=== PATIENT | male | born 1955 | race Caucasian/White ===

== ENCOUNTER 2017-08-27 13:30 | Emergency (ER) | payer OTHER ==
[~2017-08-27] VITALS: Ht 175.3 cm; Wt 95.3 kg
[2017-08-27] MEDS: LORAZEPAM 0.5 MG TABLET PO ONE (13:49)
[2017-08-27] MEDS ORDERED: LORAZEPAM 0.5 MG TABLET ONE (14:04)
[2017-08-27 14:07] LABS: BASOPHILS # (AUTO) 0.2 K/uL (0.0-8.0); BASOPHILS % (AUTO) 1.5 % (0.0-2.0); EOSINOPHILS % (AUTO) 0.2 % (0.0-7.0); HEMATOCRIT 45.1 % (36.7-47.1); HEMOGLOBIN 15.8 g/dL (12.5-16.3); LYMPHOCYTES # (AUTO) 4.4 K/uL (20.0-40.0); MEAN CORPUSCULAR HEMOGLOBIN 31.4 uug (23.8-33.4); MEAN CORPUSCULAR HGB CONC 35 g/dL (32.5-36.3); MEAN CORPUSCULAR VOLUME 89.7 fL (73.0-96.2); MONOCYTES # (AUTO) 0.3 K/uL (2.0-10.0); MONOCYTES % (AUTO) 2.6 % (0.0-11.0); NEUTROPHILS # (AUTO) 5.7 K/uL (1.8-8.9); NEUTROPHILS % (AUTO) 53.7 % (38.5-71.5); PLATELET COUNT (AUTO) 288 K/uL (152-348); RED BLOOD CELL COUNT(AUTO) 5.04 MIL/uL (4.06-5.63); WHITE BLOOD COUNT (AUTO) 10.6 K/uL (3.6-10.2)
--- NOTE | 2017-08-27 14:13 | NUR ---
Pt states still being anxious, but awaiting for Ativan to start working.
[2017-08-27 14:16] LABS: POTASSIUM 4.6 mmol/L (3.5-5.1)
--- NOTE | 2017-08-27 15:07 | NUR ---
Pt states he doesn't want to go home, and want to speak to DR. Dr English spoke to Pt.
[2017-08-27 15:09] VITALS: BP 130/77
[2017-08-27 15:19] LABS: BAND % (MANUAL) 3 % (0-10); LYMPHOCYTES % (MANUAL) 36 % (20-40); MONOCYTES % (MANUAL) 2 % (2-10); NEUTROPHILS % (MANUAL) 59 % (42-75)
--- NOTE | 2017-08-27 15:22 | NUR ---
Patient discharged to home in stable conditon. Written and verbal after care instructions given. Patient verbalizes understanding of instructions.
== END 2017-08-27 15:25 | disposition home or self-care (01) ==
LOC: ER 13:30
DX: F10.239 Alcohol dependence with withdrawal, unspecified (principal); J45.909 Unspecified asthma, uncomplicated; F17.200 Nicotine dependence, unspecified, uncomplicated; Z86.73 Personal history of transient ischemic attack (TIA), and cerebral infarction without residual deficits
CPT/HCPCS: 36415; 71010; 80048; 84484; 85025; 85730; 93005; 99285; A4663; 70030-TC

== ENCOUNTER 2017-08-27 16:29 | Emergency (ER) | payer OTHER ==
[~2017-08-27] VITALS: Ht 172.7 cm; Wt 95.3 kg
--- NOTE | 2017-08-27 18:00 | NUR ---
DR CHASE EVALUATED THE PT. PT WAS D/C TO HOME. D/C INSTRUCTIONS GIVEN TO THE PT. NO S/S OF ACUTE DISTRESS AT THIS TIME. GAIT IS STABLE.
[2017-08-27 18:29] VITALS: BP 143/92
== END 2017-08-27 18:41 | disposition home or self-care (01) ==
LOC: ER 16:30
DX: F10.239 Alcohol dependence with withdrawal, unspecified (principal); J45.909 Unspecified asthma, uncomplicated; F17.200 Nicotine dependence, unspecified, uncomplicated; Z86.73 Personal history of transient ischemic attack (TIA), and cerebral infarction without residual deficits
CPT/HCPCS: 99283; A4663

== ENCOUNTER 2018-05-06 20:05 | Inpatient (IN) | payer OTHER ==
[~2018-05-06] VITALS: Ht 175.3 cm; Wt 97.5 kg
--- NOTE | 2018-05-06 21:05 | NUR ---
Xray at bedside.
[2018-05-06 21:10] LABS: BASOPHILS % (AUTO) 0.7 % (0.0-2.0); EOSINOPHILS % (AUTO) 0.7 % (0.0-7.0); HEMATOCRIT 30.7 % (36.7-47.1); HEMOGLOBIN 10.4 g/dL (12.5-16.3); LYMPHOCYTES # (AUTO) 0.9 K/uL (20.0-40.0); LYMPHOCYTES % (AUTO) 18.6 % (20.5-51.5); MEAN CORPUSCULAR HEMOGLOBIN 30.7 uug (23.8-33.4); MEAN CORPUSCULAR HGB CONC 34 g/dL (32.5-36.3); MEAN CORPUSCULAR VOLUME 90.5 fL (73.0-96.2); MONOCYTES # (AUTO) 0.2 K/uL (2.0-10.0); NEUTROPHILS # (AUTO) 3.9 K/uL (1.8-8.9); PLATELET COUNT (AUTO) 206 K/uL (152-348); WHITE BLOOD COUNT (AUTO) 5.1 K/uL (3.6-10.2)
[2018-05-06 21:19] LABS: CARBON DIOXIDE 21 mmol/L (21-32); CHLORIDE 101 mmol/L (98-107); CREATININE 0.9 mg/dL (0.6-1.3); GLUCOSE 112 mg/dL (74-106); POTASSIUM 4.3 mmol/L (3.5-5.1); UREA NITROGEN, BLOOD 21 mg/dL (7-18)
[2018-05-06 21:25] LABS: ACETAMINOPHEN 14.4 ug/mL (10-30); ALANINE AMINOTRANSFERASE 804 U/L (16-63); ALKALINE PHOSPHATASE 92 U/L (50-136); ASPARTATE AMINOTRANSFERASE 606 U/L (15-37); BILIRUBIN,DIRECT 6.8 mg/dL (0.0-0.2); BILIRUBIN,TOTAL 9.2 mg/dL (0.2-1.0); TOTAL PROTEIN, SERUM 6.1 g/dL (6.4-8.2)
[2018-05-06 21:32] LABS: THYROID STIMULATING HORMONE 0.644 mIU/mL (0.358-3.740)
[2018-05-06 21:44] LABS: ETHANOL 158 MG/DL (0-0)
--- NOTE | 2018-05-06 21:57 | NUR ---
Pt provided urine sample, sent to lab.
[2018-05-06 22:05] LABS: *BILIRUBIN,URIN 2+ (NEGATIVE); *BLOOD, URINE Trace-intact (NEGATIVE); *CLARITY,URINE CLEAR (CLEAR); *COLOR,URINE DARK YELLOW (YELLOW); *KETONES,URINE 1+ (NEGATIVE); *PROTEIN,URINE NEGATIVE (NEGATIVE); *UROBILINOGEN,URINE 0.2 E.U./dl (NORMAL); LEUKOCYTE ESTERASE ,URINE NEGATIVE (NEGATIVE); NITRITE, URINE NEGATIVE (NEGATIVE); UGLUCOSE NEGATIVE (NEGATIVE)
[2018-05-06 22:13] LABS: *AMPHETAMINE, URINE NEGATIVE (NEGATIVE); *BARBITURATE, URINE NEGATIVE (NEGATIVE); *CANNABINOID, URINE NEGATIVE (NEGATIVE); *COCCAINE, URINE NEGATIVE (NEGATIVE); *OPIATE, URINE NEGATIVE (NEGATIVE); *PHENCYCLIDINE SCREEN,URINE NEGATIVE (NEGATIVE); BACTERIA,URINE FEW /HPF (NONE SEEN); WBC,URINE 0-3 /HPF (0-3)
[2018-05-06 22:14] LABS: SQUAMOUS EPITHELIAL CELL,UR NONE SEEN /HPF (NONE SEEN)
--- NOTE | 2018-05-06 22:20 | NUR ---
Pt out of ER for CT.
--- NOTE | 2018-05-06 22:36 | NUR ---
Pt back to ER from CT.
[2018-05-07] VITALS: BP 117/53
[2018-05-07] MEDS ORDERED: HYDROCODONE/APAP 5-325MG TABLET PO ONE
[2018-05-07] MEDS ORDERED: LACTULOSE 20 G/30 ML LIQUID UDC PO ONE
[2018-05-07] MEDS ORDERED: ONDANSETRON 4 MG/2 ML VIAL IV PRN (00:15)
--- NOTE | 2018-05-07 00:15 | NUR ---
Dr. Hernandez on panel call with Bryan Hansen.
[2018-05-07] MEDS ORDERED: LACTULOSE 20 G/30 ML LIQUID UDC ONE (00:16)
[2018-05-07] MEDS ORDERED: HYDROCODONE/APAP 5-325MG TABLET ONE (00:17)
--- NOTE | 2018-05-07 00:20 | NUR ---
PT UNABLE TO PROVIDE LIST OF MEDICATIONS/UNABLE TO REMEMBER MEDS AND DOSAGES. UNABLE TO RECONCILE MEDS AT THIS TIME.
[2018-05-07] MEDS ORDERED: LORAZEPAM 2 MG/1 ML VIAL IV PRN ×2 (00:30→11:00)
--- NOTE | 2018-05-07 00:35 | NUR ---
Report given to Will fish and game warden.
[2018-05-07 00:55] VITALS: BP 117/53
--- NOTE | 2018-05-07 00:55 | NUR ---
ADMITTED PATIENT IN TELE UNIT UNDER THE CARE OF JACKIE PERKINS, BELONGING LIST DONE.
[2018-05-07] MEDS: IV NS 1000 ML 1,000 ML IV PRN ×2 (02:41→19:00)
[2018-05-07 04:00] VITALS: BP 145/68
[2018-05-07] MEDS: HYDROCODONE/APAP 5-325MG TABLET PO PRN ×2 (05:11→23:39)
[2018-05-07] MEDS: PANTOPRAZOLE SODIUM 40 MG TABLET.DR PO SCH (06:05)
--- NOTE | 2018-05-07 06:38 | NUR ---
PATIENT AWAKE, SLEPT ON AND OFF, RYTHM WAS SINUS TACHY IN THE BEGINNING AND THEN BECAME SINUS RYTHM. PATIENT PULLED OUT HIS L JUGULAR IV SITE, REINSERT ANOTHER ONE ON R FOREARM, CONT ON PAIN MANAGEMENT. PATIENT CONTINENT VOIDING WITH BRIGHT YELLOW COLOR URINE IN FAIRLY LARGE AMOUNT, KEPT CLEAN AND DRY, PATIENT HAS MULTIPLE BRUISES DUE TO FALLS FROM HOME, FREQUENT VISUAL CHECK DONE, BED ALARMS ON, CONT TO MONITOR.
[2018-05-07 06:42] LABS: MAGNESIUM 2.2 mg/dL (1.8-2.4); PHOSPHOROUS 2.3 mg/dL (2.5-4.9)
[2018-05-07] MEDS: THIAMINE HCL 100 MG TABLET PO SCH (08:50)
[2018-05-07] MEDS: LACTULOSE 20 G/30 ML LIQUID UDC PO SCH ×3 (08:50→16:04)
--- NOTE | 2018-05-07 09:00 | NUR ---
PT'S IV ACCESS PULLED OUT.
--- NOTE | 2018-05-07 10:30 | NUR ---
SEVERAL ATTEMPTS MADE TO RE-INSERT IV, UNSUCCESSFUL. DELIVERY CLERK NOTIFIED FOR MIDLINE INSERTION ORDER.
[2018-05-07 11:10] VITALS: BP 131/71
[2018-05-07] MEDS: FOLIC ACID 1 MG TABLET PO SCH (12:12)
[2018-05-07] MEDS: MULTIVITAMINS,THERAPEUTIC TABLET PO SCH (12:12)
[2018-05-07] MEDS ORDERED: ALBUTEROL SULFATE 2.5 MG/ 0.5 ML NEBU NEB PRN (13:45)
[2018-05-07] MEDS ORDERED: LORAZEPAM 1 MG TABLET ONE (14:16)
[2018-05-07] MEDS: LORAZEPAM 1 MG TABLET PO PRN (14:24)
[2018-05-07 14:51] LABS: BASOPHILS % (AUTO) 0.8 % (0.0-2.0); EOSINOPHILS % (AUTO) 0.6 % (0.0-7.0); HEMATOCRIT 31.9 % (36.7-47.1); HEMOGLOBIN 10.5 g/dL (12.5-16.3); LYMPHOCYTES # (AUTO) 1.2 K/uL (20.0-40.0); LYMPHOCYTES % (AUTO) 38.4 % (20.5-51.5); MEAN CORPUSCULAR HEMOGLOBIN 29.8 uug (23.8-33.4); MEAN CORPUSCULAR HGB CONC 33 g/dL (32.5-36.3); MONOCYTES # (AUTO) 0.3 K/uL (2.0-10.0); MONOCYTES % (AUTO) 8.5 % (0.0-11.0); NEUTROPHILS # (AUTO) 1.6 K/uL (1.8-8.9); NEUTROPHILS % (AUTO) 51.7 % (38.5-71.5); PLATELET COUNT (AUTO) 220 K/uL (152-348); RED BLOOD CELL COUNT(AUTO) 3.51 MIL/uL (4.06-5.63); WHITE BLOOD COUNT (AUTO) 3.2 K/uL (3.6-10.2)
[2018-05-07 14:58] LABS: BILIRUBIN,TOTAL 9.7 mg/dL (0.2-1.0); CREATININE 0.7 mg/dL (0.6-1.3); MAGNESIUM 2.1 mg/dL (1.8-2.4); POTASSIUM 4.1 mmol/L (3.5-5.1); TOTAL PROTEIN, SERUM 6.4 g/dL (6.4-8.2)
[2018-05-07 15:02] VITALS: BP 124/65
[2018-05-07] MEDS ORDERED: NEUTRA PHOS PACKET PO ONE (15:15)
--- NOTE | 2018-05-07 15:40 | NUR ---
MIDLINE INSERTION DONE ON RIGHT UPPER ARM. PT TOLERATED PROCEDURE WELL.
[2018-05-07] MEDS: predniSONE 20 MG TABLET PO SCH (18:23)
--- NOTE | 2018-05-07 18:29 | NUR ---
PATIENT SLEPT INTERMITTENTLY THROUGHOUT THE SHIFT, EASILY AROUSABLE, IN NO DISTRESS, NO C/O OF NAUSEA/VOMITING. CIWA ASSESSMENT DONE Q4HR ORDERED. NO SEIZURE EPISODES NOTED THROUGHOUT THE SHIFT. VS STABLE, AFEBRILE. ASSISTED PATIENT WITH TOILETING NEEDS. PATIENT SEEN BY STOCK REPLENISHER, GI. SAFETY MEASURES IN PLACE.
--- NOTE | 2018-05-07 18:36 | NUR ---
PATIENT ON TELE MONITOR SINUS TACHY RATE 103
[2018-05-07 19:51] LABS: *OCCULT BLOOD STOOL POSITIVE (NEGATIVE)
[2018-05-07 20:20] VITALS: BP 152/81
[2018-05-07] MEDS: ALBUTEROL SULFATE 2.5 MG/3 ML NEBU NEB PRN (20:26)
[2018-05-07] MEDS: RIFAXIMIN 550 MG TABLET PO SCH ×2 (21:00→21:27)
[2018-05-08 00:45] VITALS: BP 153/68
[2018-05-08 04:25] VITALS: BP 172/78
[2018-05-08 05:10] VITALS: BP 133/70
--- NOTE | 2018-05-08 05:38 | NUR ---
Patient was awake in between care. CIWA q 4 hours done. Ativan was given PRN, effective. Patientl accidentally pulled his Midline while attempiting to get out from bed. IV G22 inserted on his left FA. Reminded use of call light, patient return demo.
[2018-05-08] MEDS: PANTOPRAZOLE SODIUM 40 MG TABLET.DR PO SCH (06:08)
[2018-05-08 06:24] LABS: BASOPHILS % (AUTO) 0.8 % (0.0-2.0); HEMOGLOBIN 9.8 g/dL (12.5-16.3); LYMPHOCYTES # (AUTO) 0.5 K/uL (20.0-40.0); LYMPHOCYTES % (AUTO) 18.3 % (20.5-51.5); MEAN CORPUSCULAR HEMOGLOBIN 31.1 uug (23.8-33.4); MEAN CORPUSCULAR HGB CONC 34 g/dL (32.5-36.3); MEAN CORPUSCULAR VOLUME 91.7 fL (73.0-96.2); MONOCYTES # (AUTO) 0.2 K/uL (2.0-10.0); MONOCYTES % (AUTO) 5.4 % (0.0-11.0); NEUTROPHILS # (AUTO) 2.1 K/uL (1.8-8.9); NEUTROPHILS % (AUTO) 75.5 % (38.5-71.5); PLATELET COUNT (AUTO) 179 K/uL (152-348); RED BLOOD CELL COUNT(AUTO) 3.16 MIL/uL (4.06-5.63); WHITE BLOOD COUNT (AUTO) 2.8 K/uL (3.6-10.2)
[2018-05-08 06:31] LABS: BILIRUBIN,TOTAL 8.7 mg/dL (0.2-1.0); CREATININE 0.8 mg/dL (0.6-1.3); PHOSPHOROUS 2.1 mg/dL (2.5-4.9); POTASSIUM 4.4 mmol/L (3.5-5.1); TOTAL PROTEIN, SERUM 6.1 g/dL (6.4-8.2)
--- NOTE | 2018-05-08 08:00 | NUR ---
PATIENT ON TELE MONITOR SINUS RHYTHM WITH OCCASIONAL PAC's
[2018-05-08 08:05] LABS: LYMPHOCYTES % (MANUAL) 21 % (20-40); MONOCYTES % (MANUAL) 6 % (2-10); NEUTROPHILS % (MANUAL) 73 % (42-75)
[2018-05-08] MEDS: IV NS 1000 ML 1,000 ML IV PRN ×2 (08:20→20:54)
[2018-05-08] MEDS: PANTOPRAZOLE SODIUM 40 MG VIAL IV SCH (08:24)
--- NOTE | 2018-05-08 08:24 | NUR ---
PROTONIX IV 40MG NOT GIVEN DUE TO PROTONIX 40MG PO PREVIOUSLY GIVEN AT 0608. PHARMACY NOTIFIED.
[2018-05-08 09:13] LABS: BILIRUBIN,DIRECT 6.6 mg/dL (0.0-0.2); BILIRUBIN,TOTAL 9.1 mg/dL (0.1-1.0)
[2018-05-08] MEDS: HYDROCODONE/APAP 5-325MG TABLET PO PRN ×3 (09:18→23:54)
[2018-05-08] MEDS: RIFAXIMIN 550 MG TABLET PO SCH ×3 (10:00→20:50)
[2018-05-08] MEDS: FOLIC ACID 1 MG TABLET PO SCH ×2 (10:00→13:13)
[2018-05-08] MEDS: THIAMINE HCL 100 MG TABLET PO SCH ×2 (10:00→13:13)
[2018-05-08] MEDS: PENTOXIFYLLINE 400 MG TABLET.SA PO SCH ×3 (10:00→17:48)
[2018-05-08] MEDS: MULTIVITAMINS,THERAPEUTIC TABLET PO SCH ×2 (10:00→13:13)
[2018-05-08] MEDS: LACTULOSE 20 G/30 ML LIQUID UDC PO SCH ×3 (10:00→17:48)
[2018-05-08] MEDS: predniSONE 20 MG TABLET PO SCH ×2 (10:00→13:13)
--- NOTE | 2018-05-08 10:00 | NUR ---
0800 and 0900 SCHEDULED MEDICATIONS NOT GIVEN DUE TO NPO STATUS. TALENT ACQUISITION OPERATIONS MANAGER NOTIFIED, WAITING FOR FURTHER ORDERS/INSTRUCTIONS.
[2018-05-08] MEDS: ALBUTEROL SULFATE 2.5 MG/3 ML NEBU NEB PRN (10:32)
[2018-05-08 11:00] VITALS: BP 159/75
[2018-05-08] MEDS ORDERED: POTASSIUM PHOSPHATE MM 7.5 MMOL in IV DEXTROSE 5% 100 ML IV ONE (12:30)
--- NOTE | 2018-05-08 13:14 | NUR ---
0900 SCHEDULE MEDICATIONS AND XIFAXAN GIVEN PER MUSEUM REGISTRAR'S ORDER. PT WAS NPO AT 0900. XIFAXAN, PREDNISONE GIVEN NOW PER MUSEUM REGISTRAR'S ORDER. PHARMACY NOTIFIED.
[2018-05-08 15:30] VITALS: BP 129/67
--- NOTE | 2018-05-08 17:15 | NUR ---
PT PICKED UP BY RADIOLOGY FOR CT ABDOMEN/PELVIS W/O CONTRAST. PT ALERT, IN NO DISTRESS. LEFT THE UNIT WITH RADIOLOGIST VIA WHEELCHAIR.
--- NOTE | 2018-05-08 17:45 | NUR ---
PATIENT CAME BACK FROM RADIOLOGY VIA WHEELCHAIR. PT ALERT, IN NO DISTRESS.
--- NOTE | 2018-05-08 18:00 | NUR ---
PATIENT SLEPT INTERMITTENTLY, IN NO DISTRESS. VS STABLE, AFEBRILE. PT NO C/O OF NAUSEA/VOMITING, NO S/S OF BLEEDING. PAIN MANAGEMENT ORDERED. ENCOURAGED NUTRITION/FLUID INTAKE. CIWA Q4HR DONE ORDERED, NO SEIZURE ACTIVITY NOTED. SEIZURE AND ASPIRATION PRECAUTION OBSERVED AT ALL TIMES, SIDE RAILS PADDED. ASSISTED PATIENT WITH TOILETING NEEDS. SAFETY MEASURES IN PLACE.
--- NOTE | 2018-05-08 18:00 | NUR ---
IVF RUNNING, NO INFILTRATION NOTED.
[2018-05-08 20:12] VITALS: BP 117/69
[2018-05-08] MEDS: FERROUS SULFATE 325 MG TABEC PO SCH (20:50)
[2018-05-08] MEDS: LORAZEPAM 1 MG TABLET PO PRN (22:51)
[2018-05-09] MEDS: HYDROCODONE/APAP 5-325MG TABLET PO PRN ×5 (04:02→21:45)
[2018-05-09 04:50] VITALS: BP 157/81
--- NOTE | 2018-05-09 05:43 | NUR ---
PT SLEPT INTERMITTENTLY THROUGH THE NIGHT AND WAS EASILY AWOKEN, PT DID COMPLAIN OF PAIN, MEDICATION WAS GIVEN AND WAS EFFECTIVE, PT DENIED HAVING ANY DIFFICULTY BREATHING, BUT PT DID HAVE SOME DYSPNEA WITH EXERTION/LABORED BREATHING WHILE TRYING TO GET OUT OF BED. PT SEEMED CALM AND COOPERATIVE MOST OF THE SHIFT, PT DID COMPLAIN OF ANXIETY ON OCCASION, PT WAS GIVEN ATIVAN AND WAS EFFECTIVE. ALL NEEDS MET, SAFETY MEASURES ARE IN PLACE, CALL LIGHT WITHIN REACH, BED ALARM IS ON.
[2018-05-09 06:55] LABS: BASOPHILS % (AUTO) 0.4 % (0.0-2.0); BILIRUBIN,TOTAL 9.5 mg/dL (0.2-1.0); CREATININE 0.7 mg/dL (0.6-1.3); HEMOGLOBIN 10.9 g/dL (12.5-16.3); LYMPHOCYTES % (AUTO) 18.6 % (20.5-51.5); MEAN CORPUSCULAR HEMOGLOBIN 31.7 uug (23.8-33.4); MEAN CORPUSCULAR HGB CONC 34 g/dL (32.5-36.3); MEAN CORPUSCULAR VOLUME 93.3 fL (73.0-96.2); MONOCYTES # (AUTO) 0.6 K/uL (2.0-10.0); MONOCYTES % (AUTO) 10.2 % (0.0-11.0); NEUTROPHILS # (AUTO) 3.8 K/uL (1.8-8.9); NEUTROPHILS % (AUTO) 70.8 % (38.5-71.5); PLATELET COUNT (AUTO) 184 K/uL (152-348); RED BLOOD CELL COUNT(AUTO) 3.44 MIL/uL (4.06-5.63); TOTAL PROTEIN, SERUM 6.7 g/dL (6.4-8.2)
[2018-05-09 07:18] LABS: HEMATOCRIT 32.1 % (36.7-47.1); WHITE BLOOD COUNT (AUTO) 5.4 K/uL (3.6-10.2)
[2018-05-09] MEDS: PENTOXIFYLLINE 400 MG TABLET.SA PO SCH ×3 (08:23→16:33)
[2018-05-09] MEDS: LACTULOSE 20 G/30 ML LIQUID UDC PO SCH ×3 (08:23→16:33)
[2018-05-09] MEDS: FERROUS SULFATE 325 MG TABEC PO SCH ×2 (08:24→20:44)
[2018-05-09] MEDS: THIAMINE HCL 100 MG TABLET PO SCH (08:24)
[2018-05-09] MEDS: PANTOPRAZOLE SODIUM 40 MG VIAL IV SCH (08:24)
[2018-05-09] MEDS: MULTIVITAMINS,THERAPEUTIC TABLET PO SCH (08:24)
[2018-05-09] MEDS: FOLIC ACID 1 MG TABLET PO SCH (08:24)
[2018-05-09] MEDS: predniSONE 20 MG TABLET PO SCH (08:24)
[2018-05-09] MEDS: RIFAXIMIN 550 MG TABLET PO SCH ×2 (08:24→20:44)
[2018-05-09 09:06] LABS: HEPATITIS A AB, IgM Negative (Negative); HEPATITIS B SURFACE AG Negative (Negative)
[2018-05-09] MEDS: ALBUTEROL SULFATE 2.5 MG/3 ML NEBU NEB PRN (10:38)
[2018-05-09] MEDS: LORAZEPAM 1 MG TABLET PO PRN ×2 (10:39→17:37)
[2018-05-09] MEDS: IV NS 1000 ML 1,000 ML IV PRN (10:40)
[2018-05-09 11:00] VITALS: BP 130/68
[2018-05-09] MEDS ORDERED: NEUTRA PHOS PACKET PO ONE (11:15)
[2018-05-09] MEDS: CIPROFLOXACIN IV 400 MG in PREMIXED 1 EACH IV SCH (11:49)
[2018-05-09 12:06] LABS: *BLOOD, URINE NEGATIVE (NEGATIVE); *CLARITY,URINE CLEAR (CLEAR); *KETONES,URINE TRACE (NEGATIVE); *PROTEIN,URINE NEGATIVE (NEGATIVE); LEUKOCYTE ESTERASE ,URINE NEGATIVE (NEGATIVE); NITRITE, URINE NEGATIVE (NEGATIVE); UGLUCOSE NEGATIVE (NEGATIVE)
[2018-05-09 12:11] LABS: *BILIRUBIN,URIN 1+ (NEGATIVE); *COLOR,URINE DARK YELLOW (YELLOW)
[2018-05-09 12:39] LABS: BACTERIA,URINE NONE SEEN /HPF (NONE SEEN); SQUAMOUS EPITHELIAL CELL,UR FEW /HPF (NONE SEEN); WBC,URINE 0-3 /HPF (0-3)
[2018-05-09 15:02] VITALS: BP 152/77
[2018-05-09 17:01] LABS: BILIRUBIN,DIRECT 6.4 mg/dL (0.0-0.2); BILIRUBIN,TOTAL 9.3 mg/dL (0.2-1.0)
--- NOTE | 2018-05-09 17:45 | NUR ---
PT ALERT, IN NO DISTRESS. PAIN MANAGEMENT ORDERED. NO SIGNIFICANT CHANGE OF CONDITION THROUGHOUT THE SHIFT. PATIENT TOLERATING CLEAR DIET WELL, NO C/O OF NAUSEA/VOMITING. VS STABLE, AFEBRILE. PATIENT SHORT OF BREATH UPON EXERTION AND SLIGHT WHEEZING NOTED. BREATHING TREATMENT ORDERED. IVF RUNNING, NO INFILTRATION NOTED. ASSISTED PATIENT WITH TOILETING NEEDS. SEIZURE PRECAUTION, SAFETY MEASURES IN PLACE.
--- NOTE | 2018-05-09 17:48 | NUR ---
CIWA Q4HR DONE ORDERED.
--- NOTE | 2018-05-09 17:48 | NUR ---
PER CHIEF GUARD, CONTINUE WITH LACTULOSE ADMINISTRATION, MONITOR BM, NO PARAMETER OF # OF BM WAS ORDERED. LACTULOSE TO BE GIVEN SCHEDULED.
[2018-05-09 19:00] VITALS: BP 136/64
--- NOTE | 2018-05-09 19:00 | NUR ---
RECEIVED PATIENT IN BED AWAKE ALERT, NO SOB NO CHEST PAIN NOTED, WITH EPISODES OF GETTING OUT OF BED AND FORGET TO ASK FOR ASSISTANCE, BED ALARM IN PLACE, MOVED CLOSE TO STATION FOR FREQUENT VISUAL CHECK. CONT TO MONITOR.
[2018-05-10] MEDS: IV NS 1000 ML 1,000 ML IV PRN ×2 (00:31→08:58)
[2018-05-10] MEDS: CIPROFLOXACIN IV 400 MG in PREMIXED 1 EACH IV SCH ×2 (00:37→12:18)
[2018-05-10] MEDS: LORAZEPAM 1 MG TABLET PO PRN ×4 (00:39→22:04)
[2018-05-10] MEDS: TEMAZEPAM 15 MG CAPSULE PO PRN ×2 (01:34→22:05)
[2018-05-10 04:00] VITALS: BP 125/62
[2018-05-10] MEDS: HYDROCODONE/APAP 5-325MG TABLET PO PRN ×3 (04:45→19:50)
[2018-05-10 06:45] LABS: BASOPHILS % (AUTO) 0.1 % (0.0-2.0); HEMATOCRIT 31.4 % (36.7-47.1); HEMOGLOBIN 10.6 g/dL (12.5-16.3); LYMPHOCYTES # (AUTO) 1.4 K/uL (20.0-40.0); LYMPHOCYTES % (AUTO) 22.6 % (20.5-51.5); MEAN CORPUSCULAR HEMOGLOBIN 31.9 uug (23.8-33.4); MEAN CORPUSCULAR HGB CONC 34 g/dL (32.5-36.3); MEAN CORPUSCULAR VOLUME 94.5 fL (73.0-96.2); MONOCYTES # (AUTO) 0.5 K/uL (2.0-10.0); MONOCYTES % (AUTO) 8.6 % (0.0-11.0); NEUTROPHILS # (AUTO) 4.3 K/uL (1.8-8.9); NEUTROPHILS % (AUTO) 68.7 % (38.5-71.5); PLATELET COUNT (AUTO) 153 K/uL (152-348); RED BLOOD CELL COUNT(AUTO) 3.33 MIL/uL (4.06-5.63); WHITE BLOOD COUNT (AUTO) 6.3 K/uL (3.6-10.2)
[2018-05-10 07:00] LABS: BILIRUBIN,TOTAL 8.7 mg/dL (0.2-1.0); CREATININE 0.8 mg/dL (0.6-1.3); MAGNESIUM 1.8 mg/dL (1.8-2.4); PHOSPHOROUS 2.4 mg/dL (2.5-4.9); POTASSIUM 3.5 mmol/L (3.5-5.1); TOTAL PROTEIN, SERUM 6.3 g/dL (6.4-8.2)
[2018-05-10] MEDS: PANTOPRAZOLE SODIUM 40 MG VIAL IV SCH (08:58)
[2018-05-10] MEDS: RIFAXIMIN 550 MG TABLET PO SCH ×2 (08:59→20:52)
[2018-05-10] MEDS: predniSONE 20 MG TABLET PO SCH (08:59)
[2018-05-10] MEDS: FERROUS SULFATE 325 MG TABEC PO SCH ×2 (08:59→20:52)
[2018-05-10] MEDS: FOLIC ACID 1 MG TABLET PO SCH (08:59)
[2018-05-10] MEDS: MULTIVITAMINS,THERAPEUTIC TABLET PO SCH (08:59)
[2018-05-10] MEDS: LACTULOSE 20 G/30 ML LIQUID UDC PO SCH ×3 (08:59→16:44)
[2018-05-10] MEDS: THIAMINE HCL 100 MG TABLET PO SCH (08:59)
[2018-05-10] MEDS: PENTOXIFYLLINE 400 MG TABLET.SA PO SCH ×3 (09:00→16:45)
--- NOTE | 2018-05-10 10:00 | NUR ---
PATIENT SEEN AND EXAMINED BY THE PHYSICAL THERAPY AND PATIENT AMBULATED IN THE HALLWAY WITH TWO MAN ASSIST AND TOLERATED WELL REC FOR OT EVAL AND NOTED.
[2018-05-10] MEDS ORDERED: NEUTRA PHOS PACKET PO ONE (10:15)
--- NOTE | 2018-05-10 10:30 | NUR ---
PHOS LEVEL IS 2.4 REVIEWED BY SUKHJINDER WATER RESOURCE ENGINEER WITH NEW ORDERS AND NOTED.
[2018-05-10 11:47] VITALS: BP 140/68
[2018-05-10 16:12] VITALS: BP 133/75
[2018-05-10] MEDS: POTASSIUM CHLORIDE 20 MEQ in IV D5/ 0.9% NACL 1,000 ML IV PRN (17:11)
--- NOTE | 2018-05-10 18:00 | NUR ---
PATIENT HAS PEROIDS OF ANXIETY MEDICATED WITH ATIVAN ORDERED WAS ASSISTED TO THE BATHROOM AMBULATED HAND HELD WITH FAIR ENDURANCE MADE COMFORTABLE AND WILL CONTINUE TO OBSERVE.
--- NOTE | 2018-05-10 19:00 | NUR ---
RECEIVED IN BED AWAKE BUT FORGETFUL CONT ON PAIN MANAGEMENT DUE TO FALL FROM HOME, HAS ALSO EPISODE OF ANXIETY, MEDICATED DIRECTED, KEPT COMFORTABLE. VOIDING FREELY, YELLOW COLOR URINE. CONT TO MONITOR.
[2018-05-10] MEDS: ALBUTEROL SULFATE 2.5 MG/3 ML NEBU NEB PRN (19:02)
[2018-05-10 20:23] VITALS: BP 131/62
[2018-05-11] MEDS: CIPROFLOXACIN IV 400 MG in PREMIXED 1 EACH IV SCH ×3 (00:02→23:48)
[2018-05-11] MEDS: HYDROCODONE/APAP 5-325MG TABLET PO PRN ×4 (01:45→22:57)
[2018-05-11] MEDS: LORAZEPAM 1 MG TABLET PO PRN ×4 (03:22→18:20)
[2018-05-11] MEDS: ALBUTEROL SULFATE 2.5 MG/3 ML NEBU NEB PRN ×3 (04:45→13:08)
[2018-05-11 04:52] VITALS: BP 133/69
[2018-05-11] MEDS: PANTOPRAZOLE SODIUM 40 MG TABLET.DR PO SCH (06:08)
--- NOTE | 2018-05-11 06:47 | NUR ---
PATIENT SLEPT MOST OF THE NIGHT, CONT ON PAIN MANAGEMENT, GENERALIZED BODY PAIN, HAS ALSO MULTIPLE EPISODES OF ANXIETY, REPORTED WITH LOWER BACK ABRASION, WITH ORDER. PATIENT WITH CONFUSION WANTING TO GO HOME. REORIENT PATIENT. CONT TO MONITOR.
[2018-05-11 07:52] LABS: BASOPHILS % (AUTO) 0.1 % (0.0-2.0); EOSINOPHILS % (AUTO) 0.2 % (0.0-7.0); HEMATOCRIT 32.9 % (36.7-47.1); HEMOGLOBIN 10.8 g/dL (12.5-16.3); LYMPHOCYTES # (AUTO) 1.2 K/uL (20.0-40.0); LYMPHOCYTES % (AUTO) 12.1 % (20.5-51.5); MEAN CORPUSCULAR HGB CONC 33 g/dL (32.5-36.3); MEAN CORPUSCULAR VOLUME 97.3 fL (73.0-96.2); MONOCYTES # (AUTO) 0.7 K/uL (2.0-10.0); MONOCYTES % (AUTO) 6.7 % (0.0-11.0); NEUTROPHILS # (AUTO) 8.3 K/uL (1.8-8.9); NEUTROPHILS % (AUTO) 80.9 % (38.5-71.5); PLATELET COUNT (AUTO) 143 K/uL (152-348); RED BLOOD CELL COUNT(AUTO) 3.38 MIL/uL (4.06-5.63); WHITE BLOOD COUNT (AUTO) 10.2 K/uL (3.6-10.2)
--- NOTE | 2018-05-11 07:57 | NUR ---
PATIENT IS CONFUSED AND DISORIENTED AT THIS TIME STATING THAT HE IS UNABLE TO BREATH YET HE TOOK OFF HIS O2 [employer] REAPPLIED REINSTRUCTED REORIENTED CALLED FOR BREATHING TREATMENT ATIVAN GIVEN ORDERED MADE COMFORTABLE AND WILL CONTINUE TO OBSERVE.
[2018-05-11 08:17] LABS: CREATININE 1.1 mg/dL (0.6-1.3); MAGNESIUM 1.5 mg/dL (1.8-2.4); PHOSPHOROUS 1.8 mg/dL (2.5-4.9)
[2018-05-11] MEDS: THIAMINE HCL 100 MG TABLET PO SCH (08:19)
[2018-05-11] MEDS: LACTULOSE 20 G/30 ML LIQUID UDC PO SCH ×3 (08:19→16:48)
[2018-05-11] MEDS: FERROUS SULFATE 325 MG TABEC PO SCH ×2 (08:19→21:10)
[2018-05-11] MEDS: MULTIVITAMINS,THERAPEUTIC TABLET PO SCH (08:19)
[2018-05-11] MEDS: predniSONE 20 MG TABLET PO SCH (08:19)
[2018-05-11] MEDS: RIFAXIMIN 550 MG TABLET PO SCH ×2 (08:20→21:10)
[2018-05-11] MEDS: FOLIC ACID 1 MG TABLET PO SCH (08:20)
[2018-05-11] MEDS: PENTOXIFYLLINE 400 MG TABLET.SA PO SCH ×3 (08:20→16:50)
[2018-05-11] MEDS ORDERED: POTASSIUM CHLORIDE 20 MEQ TAB.PRT.SR PO ONE ×2 (10:30→14:00)
--- NOTE | 2018-05-11 10:30 | NUR ---
POTASSIUM LEVEL IS 3.0 AND MAG IS 1.5 WITH NEW ORDERS FOR REPLACEMENTS AND NOTED.
[2018-05-11] MEDS: MAGNESIUM SULFATE/D5W 100 ML IV SCH ×2 (11:07→13:10)
[2018-05-11 11:44] VITALS: BP 140/67
--- NOTE | 2018-05-11 13:01 | NUR ---
NOTED FOR FOR DISCHARGE TO ACUTE REHAB UNIT SPOKE WITH THE CONCRETE SAW OPERATOR RE PLACEMENT AND SHE STATED THAT SHE WILL CONTACT DR NANI STARKS THAT PATIENT IS NOT READY FOR ARU TODAY
[2018-05-11] MEDS ORDERED: MULT-24 PO (13:06)
[2018-05-11] MEDS ORDERED: RIFA550T PO (13:06)
[2018-05-11] MEDS ORDERED: BACI15OI3 TOP (13:06)
[2018-05-11] MEDS ORDERED: LORA-259 PO (13:06)
[2018-05-11] MEDS ORDERED: PANT40TA2 PO (13:06)
[2018-05-11] MEDS ORDERED: THIA100T13 PO (13:06)
[2018-05-11] MEDS ORDERED: FOLI1TAB16 PO (13:06)
[2018-05-11] MEDS ORDERED: FERR325T28 PO (13:06)
[2018-05-11] MEDS ORDERED: LACT10SO7 PO (13:06)
[2018-05-11] MEDS ORDERED: NEUTRA PHOS PACKET PO ONE (15:30)
[2018-05-11 16:35] VITALS: BP 137/73
[2018-05-11] MEDS: POTASSIUM CHLORIDE 20 MEQ in IV D5/ 0.9% NACL 1,000 ML IV PRN (18:14)
--- NOTE | 2018-05-11 18:30 | NUR ---
PATIENT CONTINUES TO BE ANXIOUS BUT REDIRECTABLE MEDICATIONS GIVEN ORDERED MADE COMFORTABLE WILL CONTINUE TO OBSERVE AND PROVIDE A SAFE AND THERAPEUTIC ENVIRONMENTS.
--- NOTE | 2018-05-11 19:20 | NUR ---
RECEIVED PATIENT LYING IN BED, ASLEEP BUT EASILY AROUSE TO VERBAL STIMULI. IN NO ACUTE DISTRESS. AAOX1-2. IV SITE ON LEFT FA INTACT AND PATENT. IVF INFUSING. BED ON LOW AND LOCK POSITION. BED ALARM ON. OTHER SAFETY MEASURE INITIATED AND CALL RASHEED WITHIN REACHED.
[2018-05-11 20:27] VITALS: BP 141/81
[2018-05-11] MEDS: BACITRACIN/POLYMYXIN B OINT 15 GM TUBE TOP SCH (21:11)
[2018-05-12] MEDS: TEMAZEPAM 15 MG CAPSULE PO PRN ×2 (00:59→21:28)
[2018-05-12] MEDS ORDERED: LORAZEPAM 2 MG/1 ML VIAL ONE (02:17)
[2018-05-12] MEDS: LORAZEPAM 1 MG TABLET PO PRN ×4 (02:41→20:48)
[2018-05-12] MEDS: HYDROCODONE/APAP 5-325MG TABLET PO PRN ×3 (04:47→17:20)
[2018-05-12 04:57] VITALS: BP 145/72
[2018-05-12] MEDS: PANTOPRAZOLE SODIUM 40 MG TABLET.DR PO SCH (06:09)
--- NOTE | 2018-05-12 06:13 | NUR ---
AAOX1-2. IN NO ACUTE DISTRESS. O2 SAT AT 98% ON RA. IV SITE ON LEFT FA REMAINS INTACT AND PATENT. IVF INFUSING. NO ADVERSE REACTION NOTED FROM IV ABX. NEEDS ATTENDED TO AND MET. SAFETY MEASURE MAINTAINED AND CALL RASHEED WITHIN REACHED.
[2018-05-12 07:02] LABS: CREATININE 0.8 mg/dL (0.6-1.3); MAGNESIUM 1.8 mg/dL (1.8-2.4); POTASSIUM 3.7 mmol/L (3.5-5.1)
--- NOTE | 2018-05-12 07:03 | NUR ---
PATIENT IV DISLODGE. STARTED NEW IV LINE ON RIGHT WRIST AREA #22 GAUGE.
[2018-05-12 08:19] VITALS: BP 140/60
[2018-05-12] MEDS: predniSONE 20 MG TABLET PO SCH (08:30)
[2018-05-12] MEDS: RIFAXIMIN 550 MG TABLET PO SCH ×2 (08:31→20:30)
[2018-05-12] MEDS: PENTOXIFYLLINE 400 MG TABLET.SA PO SCH ×3 (08:31→16:40)
[2018-05-12] MEDS: MULTIVITAMINS,THERAPEUTIC TABLET PO SCH (08:31)
[2018-05-12] MEDS: FERROUS SULFATE 325 MG TABEC PO SCH ×2 (08:31→20:30)
[2018-05-12] MEDS: FOLIC ACID 1 MG TABLET PO SCH (08:32)
[2018-05-12] MEDS: THIAMINE HCL 100 MG TABLET PO SCH (08:32)
[2018-05-12] MEDS: BACITRACIN/POLYMYXIN B OINT 15 GM TUBE TOP SCH ×2 (08:35→20:30)
[2018-05-12] MEDS: LACTULOSE 20 G/30 ML LIQUID UDC PO SCH ×3 (08:36→16:40)
[2018-05-12] MEDS: POTASSIUM CHLORIDE 20 MEQ in IV D5/ 0.9% NACL 1,000 ML IV PRN (10:17)
--- NOTE | 2018-05-12 10:30 | NUR ---
Patient noted to be confused and getting out of bed unsupervised for more than one time, pt. reoriented. pharmacist in charge notified.
[2018-05-12] MEDS: ALBUTEROL SULFATE 2.5 MG/3 ML NEBU NEB PRN ×2 (11:11→13:12)
[2018-05-12 11:19] VITALS: BP 125/61
[2018-05-12] MEDS: CIPROFLOXACIN IV 400 MG in PREMIXED 1 EACH IV SCH (12:46)
--- NOTE | 2018-05-12 14:45 | NUR ---
Manager Process Improvement notified of the need to have a sitter at bedside due to pt's increased confusion and multiple attempt to get out of bed unsupervised with 2 of those attempts close to fall at bedside. pt. increasingly confused and shaking. solderer furnace notified as well.
[2018-05-12 15:21] VITALS: BP 98/68
--- NOTE | 2018-05-12 17:05 | NUR ---
At this time patient extremely restless and agitated, despite having a 1:1 sitter at bedside pt. manage to get all the way into the nurses station, running away from according to him " they want to kill me, I want vodka, I wanna go home I have lots of drinks there" with help of more medical staff pt. escorted back his room medicated with ativn Addendum: 05/12/18 at 1731 by BEBA PEOPLES RN medicated with Ativan and for pain as well. Security called for assistance, since pt. is pushing staff away.
--- NOTE | 2018-05-12 19:30 | NUR ---
Received patient in bed awake, alert, & extremely forgetful. Patient stable at start of shift with no acute distress. Vital signs within range. Upon admission, IV was found dislodged and leaking on the right wrist. Patient is suppose to be on IV fluids D5NS 20 Kcl Meq at 100cc/hr. Attempted to reinsert IV but unable at this time. Will notify MD. 1:1 sitter at the bedside for safety. Bed alarm is on & bed is locked. Call light within reach of patient. Will continue to monitor through shift.
[2018-05-12 19:42] VITALS: BP 127/61
--- NOTE | 2018-05-12 20:50 | NUR ---
PATIENT AWAKE IN BED. A/O X 1-2. VERY FORGETFUL AND NEEDS FREQUENT REDIRECTION, BUT DOES FOLLOW DIRECTIONS WELL. DENIES PAIN OR DISCOMFORT. NO RESP. DISTRESS NOTED. ON RA 97%. VS WNL. UPON ADMISSION, IV HEPLOCK NOTED TO RIGHT WRIST, DISLODGED AND LEAKING. RN NOTIFIED. ATTEMPTED TO RESTART, BUT UNABLE AT THIS TIME. RN WILL NOTIFY MD. PATIENT IS VERY ANXIOUS AND CONTINUOUSLY TRYING TO GET OOB AND "GO HOME." PATIENT GIVEN ATIVAN 1MG PO PRN FOR ANXIETY. SITTER AT BEDSIDE FOR SAFETY. BED ALARM ON. CALL LIGHT IN REACH. ALL NEEDS ATTENDED, WILL CONTINUE TO MONITOR AND ASSESS.
--- NOTE | 2018-05-12 21:15 | NUR ---
Informed TUGBOAT MATE Curtis about patient's IV being dislodge & infiltrated. Several attempts on patient with no success. Informed TUGBOAT MATE Curtis that patient is staying hydrated & drinking plenty of fluids. TUGBOAT MATE Curtis ordered to change ATB Cipro to PO for today & possible insertion of Midline in the AM. Will carry out order & continue to monitor.
--- NOTE | 2018-05-12 21:26 | NUR ---
PATIENT AWAKE IN BED. ASKING FOR SLEEPING PILL. VSS. PATIENT GIVEN RESTORIL 15MG PO PRN FOR SLEEP. SITTER AT BEDSIDE FOR SAFETY. BED ALARM ON. ALL NEEDS ATTENDED. WILL CONTINUE TO MONITOR AND ASSESS.
[2018-05-12] MEDS ORDERED: CIPROFLOXACIN HCL 250 MG TABLET ONE (23:55)
[2018-05-13] MEDS: CIPROFLOXACIN HCL 250 MG TABLET PO SCH ×3 (00:02→16:39)
[2018-05-13] MEDS: LORAZEPAM 1 MG TABLET PO PRN ×3 (00:55→11:12)
[2018-05-13 05:03] VITALS: BP 137/71
[2018-05-13] MEDS: PANTOPRAZOLE SODIUM 40 MG TABLET.DR PO SCH (06:01)
--- NOTE | 2018-05-13 06:28 | NUR ---
Patient stable through shift. All needs attended to. Medications administered per MD order. Safety & comfort measures provided. 1:1 sitter at the bedside for safety. Will endorse to oncoming shift.
[2018-05-13 08:01] VITALS: BP 141/74
[2018-05-13] MEDS: predniSONE 20 MG TABLET PO SCH (08:11)
[2018-05-13] MEDS: LACTULOSE 20 G/30 ML LIQUID UDC PO SCH ×3 (08:11→16:39)
[2018-05-13] MEDS: RIFAXIMIN 550 MG TABLET PO SCH ×2 (08:11→20:18)
[2018-05-13] MEDS: MULTIVITAMINS,THERAPEUTIC TABLET PO SCH (08:11)
[2018-05-13] MEDS: FERROUS SULFATE 325 MG TABEC PO SCH ×2 (08:11→20:18)
[2018-05-13] MEDS: FOLIC ACID 1 MG TABLET PO SCH (08:11)
[2018-05-13] MEDS: THIAMINE HCL 100 MG TABLET PO SCH (08:11)
[2018-05-13] MEDS: PENTOXIFYLLINE 400 MG TABLET.SA PO SCH ×3 (08:13→16:39)
[2018-05-13] MEDS: BACITRACIN/POLYMYXIN B OINT 15 GM TUBE TOP SCH ×2 (08:14→20:20)
[2018-05-13] MEDS: HYDROCODONE/APAP 5-325MG TABLET PO PRN ×3 (08:26→20:19)
[2018-05-13] MEDS: POTASSIUM CHLORIDE 20 MEQ in IV D5/ 0.9% NACL 1,000 ML IV PRN ×2 (10:58→22:41)
[2018-05-13 11:06] VITALS: BP 125/56
[2018-05-13 14:55] VITALS: BP 130/77
[2018-05-13 18:43] LABS: POTASSIUM 4.2 mmol/L (3.5-5.1)
[2018-05-13 18:49] LABS: BILIRUBIN,DIRECT 4.1 mg/dL (0.0-0.2); BILIRUBIN,TOTAL 6.4 mg/dL (0.2-1.0); TOTAL PROTEIN, SERUM 6.4 g/dL (6.4-8.2)
[2018-05-13 19:30] VITALS: BP 126/68
--- NOTE | 2018-05-13 19:30 | NUR ---
Received patient in stable condition. Vital signs within range. 1:1 sitter at the bedside for safety. Patient is alert, awake, lying comfortably in bed. Noted with Left forearm 20G IV site which is patent & flushing well. Bed in low position, locked, with bed alarm placed on. Patient complaining of neck pain at start of shift. Will medicate per MD order & reassess. Call light in reach. Will continue to monitor through shift.
[2018-05-14 04:00] VITALS: BP 113/55
[2018-05-14] MEDS: ALBUTEROL SULFATE 2.5 MG/3 ML NEBU NEB PRN (04:00)
[2018-05-14] MEDS: PANTOPRAZOLE SODIUM 40 MG TABLET.DR PO SCH (06:03)
--- NOTE | 2018-05-14 06:39 | NUR ---
Patient stable through shift. No acute distress noted. Vital signs stable. 1:1 sitter at the bedside for safety. Complaint with care & medication administration. All needs attended to promptly. Safety & comfort measures provided. Call light within reach of patient. Will endorse to day shift nurse.
[2018-05-14] MEDS: predniSONE 20 MG TABLET PO SCH (08:42)
[2018-05-14] MEDS: LACTULOSE 20 G/30 ML LIQUID UDC PO SCH ×2 (08:42→13:20)
[2018-05-14] MEDS: FERROUS SULFATE 325 MG TABEC PO SCH (08:43)
[2018-05-14] MEDS: FOLIC ACID 1 MG TABLET PO SCH (08:43)
[2018-05-14] MEDS: MULTIVITAMINS,THERAPEUTIC TABLET PO SCH (08:43)
[2018-05-14] MEDS: PENTOXIFYLLINE 400 MG TABLET.SA PO SCH ×2 (08:43→13:21)
[2018-05-14] MEDS: BACITRACIN/POLYMYXIN B OINT 15 GM TUBE TOP SCH (08:44)
[2018-05-14] MEDS: RIFAXIMIN 550 MG TABLET PO SCH (08:44)
[2018-05-14] MEDS: THIAMINE HCL 100 MG TABLET PO SCH (08:44)
[2018-05-14] MEDS: POTASSIUM CHLORIDE 20 MEQ in IV D5/ 0.9% NACL 1,000 ML IV PRN (08:50)
[2018-05-14 10:42] VITALS: BP 138/72
--- NOTE | 2018-05-14 15:00 | NUR ---
Patient was given discharge instructions,IV removed, belongings accounted for, prescriptions given and taxi called for patient pickup. Voucher received by patient and was taken to picking supervisor area. Nodistress at time of discharge noted.
== END 2018-05-14 15:00 | disposition home or self-care (01) | DRG 279 ==
LOC: ER 20:17 → TELE 05-07 00:30 → MED 05-08 16:57
PROVIDERS: ADMIT Nurse Practitioner Acute Care; ATTEND Nurse Practitioner Acute Care
PROC: 05H533Z Insertion of Infusion Device into Right Subclavian Vein, Percutaneous Approach (ICD-10-PCS; principal; 2018-05-07)
PROC: B546ZZA Ultrasonography of Right Subclavian Vein, Guidance (ICD-10-PCS; principal; 2018-05-07)
DX: K72.00 Acute and subacute hepatic failure without coma (principal); K76.7 Hepatorenal syndrome; E44.0 Moderate protein-calorie malnutrition; G92 Toxic encephalopathy; K92.2 Gastrointestinal hemorrhage, unspecified; D68.4 Acquired coagulation factor deficiency; E83.39 Other disorders of phosphorus metabolism; E83.51 Hypocalcemia; K70.10 Alcoholic hepatitis without ascites; E87.1 Hypo-osmolality and hyponatremia; D64.9 Anemia, unspecified; E66.9 Obesity, unspecified; I25.10 Atherosclerotic heart disease of native coronary artery without angina pectoris; Y90.6 Blood alcohol level of 120-199 mg/100 ml; Z68.31 Body mass index [BMI] 31.0-31.9, adult; J45.909 Unspecified asthma, uncomplicated; Z86.73 Personal history of transient ischemic attack (TIA), and cerebral infarction without residual deficits; R74.0 Nonspecific elevation of levels of transaminase and lactic acid dehydrogenase [LDH]; F10.229 Alcohol dependence with intoxication, unspecified; T51.0X1A Toxic effect of ethanol, accidental (unintentional), initial encounter; R73.9 Hyperglycemia, unspecified; M50.321 Other cervical disc degeneration at C4-C5 level; R82.90 Unspecified abnormal findings in urine; R16.2 Hepatomegaly with splenomegaly, not elsewhere classified; M47.9 Spondylosis, unspecified; K57.30 Diverticulosis of large intestine without perforation or abscess without bleeding; E87.8 Other disorders of electrolyte and fluid balance, not elsewhere classified; D72.819 Decreased white blood cell count, unspecified
CPT/HCPCS: 36415; 70030-TC; 70450; 71045; 72125; 76700; 80307; 82105; 83550; 83605; 83735; 84100; 84443; 85025; 85610; 85730; 86704; 86705; 86706; 86708; 86709; 86803; 87086; 87340; 87350; 92610; 93005; 94640; 94664; 97116; 97165; 97530; A4663; C9113; G0480; G0480-TC; J0744; J2060; J3475; J3480; J3490; J7030; J7042; J7060; J7512

== ENCOUNTER 2018-09-03 04:31 | Emergency (ER) | payer OTHER ==
[~2018-09-03] VITALS: Ht 172.7 cm; Wt 90.7 kg
[~2018-09-03 04:31] MED LIST: BACI15OI3 TOP; FERR325T28 PO; FOLI1TAB16 PO; LACT10SO7 PO; LORA-259 PO; MULT-24 PO; PANT40TA2 PO; RIFA550T PO; THIA100T13 PO
[2018-09-03] MEDS ORDERED: PANTOPRAZOLE SODIUM 40 MG VIAL IV ONE (04:45)
[2018-09-03] MEDS ORDERED: ONDANSETRON 4 MG/2 ML VIAL IV ONE (04:45)
[2018-09-03] MEDS ORDERED: PANTOPRAZOLE SODIUM 40 MG VIAL ONE (04:48)
[2018-09-03] MEDS ORDERED: ONDANSETRON 4 MG/2 ML VIAL ONE (04:49)
[2018-09-03] MEDS ORDERED: IV NORMAL SALINE 1000 ML BAG IV ONE (05:00)
[2018-09-03] MEDS ORDERED: LORAZEPAM 2 MG/1 ML VIAL IV ONE ×2 (05:15→07:15)
--- NOTE | 2018-09-03 05:19 | NUR ---
Pt. BIB RA w/ c/o 8/10 CP for the last 2-3 hrs., and anxiety, pt. is visibly shaking and states he is "going through withdrawls" drinking red wine 8-10 hrs. ago,
[2018-09-03 05:25] LABS: BASOPHILS % (AUTO) 0.6 % (0.0-2.0); EOSINOPHILS % (AUTO) 0.1 % (0.0-7.0); HEMATOCRIT 33.9 % (36.7-47.1); HEMOGLOBIN 11.7 g/dL (12.5-16.3); MEAN CORPUSCULAR HEMOGLOBIN 30.9 uug (23.8-33.4); MEAN CORPUSCULAR HGB CONC 35 g/dL (32.5-36.3); MEAN CORPUSCULAR VOLUME 89.7 fL (73.0-96.2); MONOCYTES # (AUTO) 0.4 K/uL (2.0-10.0); MONOCYTES % (AUTO) 6.8 % (0.0-11.0); NEUTROPHILS # (AUTO) 3.1 K/uL (1.8-8.9); NEUTROPHILS % (AUTO) 56.5 % (38.5-71.5); PLATELET COUNT (AUTO) 113 K/uL (152-348); RED BLOOD CELL COUNT(AUTO) 3.78 MIL/uL (4.06-5.63); WHITE BLOOD COUNT (AUTO) 5.5 K/uL (3.6-10.2)
[2018-09-03] MEDS ORDERED: LORAZEPAM 2 MG/1 ML VIAL ONE ×2 (05:27→07:17)
[2018-09-03 05:34] LABS: BILIRUBIN,DIRECT 0.3 mg/dL (0.0-0.2); BILIRUBIN,TOTAL 0.8 mg/dL (0.2-1.0); CREATININE 0.8 mg/dL (0.6-1.3)
--- NOTE | 2018-09-03 05:38 | NUR ---
gate technician in w/ pt. for CXR
--- NOTE | 2018-09-03 06:56 | NUR ---
Gave report to Miranda KAN,
--- NOTE | 2018-09-03 07:10 | NUR ---
pt requesting a medicine to calm down. notified.
--- NOTE | 2018-09-03 09:54 | NUR ---
pt ambulated to bathroom with steady gait. pt says has a place to go ad has family members for support. offered sharon bhakta, pt refused.
--- NOTE | 2018-09-03 10:10 | NUR ---
pt now co right blank pain, pt will urinate to be sent for ua.
[2018-09-03 11:24] LABS: *BILIRUBIN,URIN 1+ (NEGATIVE); *BLOOD, URINE Trace-lysed (NEGATIVE); *CLARITY,URINE CLEAR (CLEAR); *COLOR,URINE DARK YELLOW (YELLOW); *KETONES,URINE 1+ (NEGATIVE); *UROBILINOGEN,URINE 0.2 E.U./dl (NORMAL); LEUKOCYTE ESTERASE ,URINE NEGATIVE (NEGATIVE); NITRITE, URINE NEGATIVE (NEGATIVE); UGLUCOSE NEGATIVE (NEGATIVE)
[2018-09-03 11:59] LABS: BACTERIA,URINE NONE SEEN /HPF (NONE SEEN); MUCUS,URINE MODERATE /LPF (0-FEW); SQUAMOUS EPITHELIAL CELL,UR FEW /HPF (NONE SEEN); WBC,URINE 0-3 /HPF (0-3)
--- NOTE | 2018-09-03 12:16 | NUR ---
Patient discharged to home in stable conditon. Written and verbal after care instructions given. Patient verbalizes understanding of instructions.pt walks in steady gait. offered pt elias cah and food. pt refused.
[2018-09-03 12:17] VITALS: BP 118/81
== END 2018-09-03 12:18 | disposition home or self-care (01) ==
LOC: ER 04:32
DX: F10.129 Alcohol abuse with intoxication, unspecified (principal); K29.20 Alcoholic gastritis without bleeding; J45.909 Unspecified asthma, uncomplicated; Z91.010 Allergy to peanuts; Z79.899 Other long term (current) drug therapy; Z79.2 Long term (current) use of antibiotics
CPT/HCPCS: 36415; 71045; 80048; 80076; 81001; 83690; 84484; 85025; 85730; 93005; 96361; 96374; 96375; 96376; 99284; C9113; G0480; J2060 ×2; J2405; 70030-TC; A4663; J7030

== ENCOUNTER 2018-12-18 20:10 | Emergency (ER) | payer OTHER ==
[~2018-12-18] VITALS: Ht 182.9 cm; Wt 90.7 kg
[2018-12-18] MEDS ORDERED: IV NORMAL SALINE 1000 ML BAG IV ONE (20:30)
[2018-12-18] MEDS ORDERED: ONDANSETRON 4 MG/2 ML VIAL IV ONE (20:30)
[2018-12-18 21:02] LABS: BASOPHILS # (AUTO) 0.2 K/uL (0.0-8.0); BASOPHILS % (AUTO) 1.9 % (0.0-2.0); EOSINOPHILS % (AUTO) 0.1 % (0.0-7.0); HEMATOCRIT 42.9 % (36.7-47.1); HEMOGLOBIN 14.8 g/dL (12.5-16.3); LYMPHOCYTES # (AUTO) 2.8 K/uL (20.0-40.0); LYMPHOCYTES % (AUTO) 23.6 % (20.5-51.5); MEAN CORPUSCULAR HEMOGLOBIN 31.7 uug (23.8-33.4); MEAN CORPUSCULAR HGB CONC 35 g/dL (32.5-36.3); MEAN CORPUSCULAR VOLUME 91.5 fL (73.0-96.2); MONOCYTES # (AUTO) 0.2 K/uL (2.0-10.0); MONOCYTES % (AUTO) 1.8 % (0.0-11.0); NEUTROPHILS # (AUTO) 8.6 K/uL (1.8-8.9); NEUTROPHILS % (AUTO) 72.6 % (38.5-71.5); PLATELET COUNT (AUTO) 505 K/uL (152-348); RED BLOOD CELL COUNT(AUTO) 4.69 MIL/uL (4.06-5.63); WHITE BLOOD COUNT (AUTO) 11.8 K/uL (3.6-10.2)
[2018-12-18 21:04] LABS: CARBON DIOXIDE 21 mmol/L (21-32); CHLORIDE 91 mmol/L (98-107); GLUCOSE 126 mg/dL (74-106); POTASSIUM 5.5 mmol/L (3.5-5.1); UREA NITROGEN, BLOOD 27 mg/dL (7-18)
[2018-12-18 21:08] LABS: ETHANOL 400 MG/DL (0-0)
[2018-12-18 21:11] LABS: ALANINE AMINOTRANSFERASE 41 U/L (16-63); ALKALINE PHOSPHATASE 69 U/L (50-136); ASPARTATE AMINOTRANSFERASE 42 U/L (15-37); BILIRUBIN,DIRECT 0.2 mg/dL (0.0-0.2); BILIRUBIN,TOTAL 0.5 mg/dL (0.2-1.0); TOTAL PROTEIN, SERUM 9.1 g/dL (6.4-8.2)
[2018-12-18 21:12] LABS: ACETAMINOPHEN < 2.0 ug/mL (10-30)
[2018-12-18 21:26] LABS: BAND % (MANUAL) 2 % (0-10); LYMPHOCYTES % (MANUAL) 27 % (20-40); MONOCYTES % (MANUAL) 4 % (2-10); NEUTROPHILS % (MANUAL) 67 % (42-75)
--- NOTE | 2018-12-18 22:11 | NUR ---
Pt. BIB RA for AMS d/t acute alcohol intoxication, pt. is poorly responsive to verbal stimulation and smells of alcohol, does not obey commands, RR even and unlabored, monitoring from from nurse station,
[2018-12-18] MEDS ORDERED: IV D5/ 0.9% NACL 1,000 ML IV ONE (22:50)
[2018-12-18] MEDS ORDERED: ONDANSETRON 4 MG/2 ML VIAL ONE (23:00)
--- NOTE | 2018-12-19 00:33 | NUR ---
IV site observed to be infiltrated. Approximately 400 ml of D5%NS administered. IV removed. Catheter intact and site benign. Pressure and 4x4 gauze applied to site. No bleeding noted.
--- NOTE | 2018-12-19 00:51 | NUR ---
Patient observed to be resting in bed with eyes closed. However, he intermittently shouts for assistance and states that he wants something for "anxiety." Patient education provided regarding mixing medications and alcohol. ERMD notified. ERMD states patient is medically cleared to be discharged home. Patient was informed and continued to sleep in bed.
--- NOTE | 2018-12-19 01:45 | NUR ---
Patient is resting comfortably in bed with eyes closed
[2018-12-19] MEDS ORDERED: LORAZEPAM 1 MG TABLET ONE (05:08)
[2018-12-19] MEDS ORDERED: LORAZEPAM 0.5 MG TABLET PO ONE (05:15)
--- NOTE | 2018-12-19 06:11 | NUR ---
Patient is resting comfortably in bed with eyes closed
[2018-12-19 07:29] LABS: *AMPHETAMINE, URINE NEGATIVE (NEGATIVE); *BARBITURATE, URINE NEGATIVE (NEGATIVE); *CANNABINOID, URINE NEGATIVE (NEGATIVE); *COCCAINE, URINE NEGATIVE (NEGATIVE); *OPIATE, URINE NEGATIVE (NEGATIVE); *PHENCYCLIDINE SCREEN,URINE NEGATIVE (NEGATIVE)
--- NOTE | 2018-12-19 08:16 | NUR ---
PATIENT IS PAIN FREE AT THIS TIME. Patient is resting comfortably on gurney, easily arousable, wanting to stay for "couple" more hours, MD aware, NAD, calm & cooperative. Breakfast tray@bedside.
--- NOTE | 2018-12-19 09:42 | NUR ---
Patient discharged to home in stable conditon & steady gait. Written and verbal after care instructions given to patient. Patient verbalizes understanding of instructions. Copies of all the tests' results were given to patient. Taxi was called. Patient said that he will pay the taxi with his own huffman.
== END 2018-12-19 10:13 | disposition home or self-care (01) ==
LOC: ER 20:11
DX: F10.129 Alcohol abuse with intoxication, unspecified (principal); J45.909 Unspecified asthma, uncomplicated; F17.200 Nicotine dependence, unspecified, uncomplicated; Z91.010 Allergy to peanuts; Z79.899 Other long term (current) drug therapy; Y90.8 Blood alcohol level of 240 mg/100 ml or more
CPT/HCPCS: 36415; 80048; 80076; 80307; 82140; 85025; 93005; 96374; 99284; G0480 ×2; G0481; J2405; J7042; A4663; J7030

== ENCOUNTER 2019-06-25 09:50 | Inpatient (IN) | payer OTHER ==
[~2019-06-25] VITALS: Ht 175.3 cm; Wt 93.9 kg
[2019-06-25] MEDS ORDERED: LISINOPRIL (10:02)
[2019-06-25] MEDS ORDERED: ALBU8.5H8 IH (10:02)
[2019-06-25] MEDS ORDERED: IV NORMAL SALINE 1000 ML BAG IV ONE (10:15)
[2019-06-25] MEDS ORDERED: LORAZEPAM 2 MG/1 ML VIAL IV ONE (10:15)
[2019-06-25] MEDS ORDERED: VITAMIN B COMPLEX (10:22)
[2019-06-25] MEDS ORDERED: IPRA4AER IH (10:22)
[2019-06-25] MEDS ORDERED: LORAZEPAM 2 MG/1 ML VIAL ONE (10:29)
[2019-06-25] MEDS ORDERED: NITROGLYCERIN 0.4 MG/TAB BOTTLE SL ONE ×2 (10:29→10:30)
[2019-06-25 10:36] LABS: BASOPHILS # (AUTO) 0.1 K/uL (0.0-8.0); BASOPHILS % (AUTO) 1.4 % (0.0-2.0); EOSINOPHILS % (AUTO) 0.5 % (0.0-7.0); HEMATOCRIT 38.8 % (36.7-47.1); HEMOGLOBIN 13.3 g/dL (12.5-16.3); LYMPHOCYTES % (AUTO) 31.2 % (20.5-51.5); MEAN CORPUSCULAR HEMOGLOBIN 31.8 uug (23.8-33.4); MEAN CORPUSCULAR HGB CONC 34 g/dL (32.5-36.3); MEAN CORPUSCULAR VOLUME 92.9 fL (73.0-96.2); MONOCYTES # (AUTO) 0.4 K/uL (2.0-10.0); MONOCYTES % (AUTO) 5.4 % (0.0-11.0); NEUTROPHILS % (AUTO) 61.5 % (38.5-71.5); PLATELET COUNT (AUTO) 299 K/uL (152-348); RED BLOOD CELL COUNT(AUTO) 4.18 MIL/uL (4.06-5.63); WHITE BLOOD COUNT (AUTO) 6.5 K/uL (3.6-10.2)
--- NOTE | 2019-06-25 10:38 | NUR ---
PT IS IN RPOOM #1A. DR VILLALOBOS EVALUATED THE PT.
[2019-06-25 10:44] LABS: CARBON DIOXIDE 22 mmol/L (21-32); CHLORIDE 103 mmol/L (98-107); CREATININE 0.7 mg/dL (0.6-1.3); GLUCOSE 107 mg/dL (74-106); POTASSIUM 3.9 mmol/L (3.5-5.1); UREA NITROGEN, BLOOD 12 mg/dL (7-18)
[2019-06-25 10:49] LABS: ALANINE AMINOTRANSFERASE 39 U/L (16-63); ALKALINE PHOSPHATASE 63 U/L (50-136); ASPARTATE AMINOTRANSFERASE 59 U/L (15-37); BILIRUBIN,DIRECT 0.2 mg/dL (0.0-0.2); BILIRUBIN,TOTAL 0.8 mg/dL (0.2-1.0); LIPASE 96 U/L (73-393); TOTAL PROTEIN, SERUM 7.2 g/dL (6.4-8.2)
[2019-06-25 11:00] LABS: MAGNESIUM 1.5 mg/dL (1.8-2.4)
[2019-06-25] MEDS ORDERED: MAGNESIUM SULFATE/D5W 100 ML IV SCH (11:15)
[2019-06-25] MEDS ORDERED: MAGNESIUM SULFATE 1 GM/2 ML VIAL ONE (11:22)
[2019-06-25] MEDS ORDERED: ASPIRIN 325 MG TABLET PO ONE (11:45)
[2019-06-25] MEDS ORDERED: PANTOPRAZOLE SODIUM 40 MG TABLET.DR PO ONE ×2 (11:45→11:57)
[2019-06-25] MEDS ORDERED: ASPIRIN 325 MG TABLET ONE (11:56)
--- NOTE | 2019-06-25 13:11 | NUR ---
PT WAS TRANSFERED TO ROOM #314. REPORT WAS GIVEN TO UTILITY AGENT.
[2019-06-25 13:15] VITALS: BP 168/71
[2019-06-25] MEDS ORDERED: ZOLPIDEM 5 MG TABLET PO PRN (14:15)
[2019-06-25] MEDS ORDERED: MAGNESIUM HYDROXIDE 30 ML LIQUID UDC PO PRN (14:15)
[2019-06-25] MEDS ORDERED: ACETAMINOPHEN 325 MG TABLET PO PRN (14:15)
[2019-06-25] MEDS ORDERED: ONDANSETRON 4 MG/2 ML VIAL IV PRN (14:15)
[2019-06-25] MEDS ORDERED: Z GUARD REMEDY PASTE 57 GM TUBE TOP PRN (14:15)
[2019-06-25 15:06] VITALS: BP 164/77
[2019-06-25] MEDS ORDERED: THIAMINE HCL INJ 100 MG in IV DEXTROSE 5% 50 ML IV SCH (16:00)
[2019-06-25] MEDS: MAGNESIUM SULFATE/D5W 100 ML IV SCH ×3 (16:46→17:35)
[2019-06-25] MEDS: IV D5 1/2 NS 1000 ML 1,000 ML IV PRN ×2 (16:46→23:41)
[2019-06-25] MEDS: CHLORDIAZEPOXIDE HCL 25 MG CAPSULE PO SCH ×2 (16:48→20:47)
[2019-06-25] MEDS: HYDROCODONE/APAP 5-325MG TABLET PO PRN (16:48)
[2019-06-25] MEDS: FOLIC ACID 1 MG TABLET PO SCH (16:48)
[2019-06-25] MEDS: MULTIVITAMINS,THERAPEUTIC TABLET PO SCH (16:48)
[2019-06-25 16:49] LABS: *AMPHETAMINE, URINE NEGATIVE (NEGATIVE); *BARBITURATE, URINE NEGATIVE (NEGATIVE); *CANNABINOID, URINE NEGATIVE (NEGATIVE); *COCCAINE, URINE NEGATIVE (NEGATIVE); *OPIATE, URINE NEGATIVE (NEGATIVE); *PHENCYCLIDINE SCREEN,URINE NEGATIVE (NEGATIVE)
[2019-06-25] MEDS: LORAZEPAM 2 MG/1 ML VIAL IV PRN ×2 (16:49→21:28)
[2019-06-25 20:12] VITALS: BP 162/84
[2019-06-25] MEDS: DOCUSATE SODIUM 100 MG CAPSULE PO SCH (20:47)
[2019-06-25] MEDS: ENOXAPARIN SODIUM 40 MG/0.4 ML DISP.SYRIN SQ SCH (20:48)
[2019-06-26] VITALS: BP 153/77
[2019-06-26] MEDS: LORAZEPAM 2 MG/1 ML VIAL IV PRN ×8 (01:13→22:35)
[2019-06-26] MEDS: HYDROCODONE/APAP 5-325MG TABLET PO PRN ×3 (01:13→22:42)
[2019-06-26 04:00] VITALS: BP 142/74
[2019-06-26] MEDS: PANTOPRAZOLE SODIUM 40 MG TABLET.DR PO SCH (05:41)
[2019-06-26] MEDS: IV D5 1/2 NS 1000 ML 1,000 ML IV PRN ×3 (05:41→19:44)
--- NOTE | 2019-06-26 06:44 | NUR ---
Pt rested well in between care; c/o pain and addresses; CIWA scores like 11+ and given with ativan IVP; needs attended; safety maintained; VSS; continue to monitor; continue plan of care
[2019-06-26 06:48] LABS: BASOPHILS % (AUTO) 0.8 % (0.0-2.0); EOSINOPHILS # (AUTO) 0.1 K/uL (0.0-0.7); EOSINOPHILS % (AUTO) 1.9 % (0.0-7.0); HEMATOCRIT 36.1 % (36.7-47.1); HEMOGLOBIN 12.2 g/dL (12.5-16.3); LYMPHOCYTES # (AUTO) 1.3 K/uL (20.0-40.0); MEAN CORPUSCULAR HEMOGLOBIN 31.1 uug (23.8-33.4); MEAN CORPUSCULAR HGB CONC 34 g/dL (32.5-36.3); MEAN CORPUSCULAR VOLUME 91.8 fL (73.0-96.2); MONOCYTES # (AUTO) 0.2 K/uL (2.0-10.0); MONOCYTES % (AUTO) 6.2 % (0.0-11.0); NEUTROPHILS # (AUTO) 2.3 K/uL (1.8-8.9); NEUTROPHILS % (AUTO) 59.1 % (38.5-71.5); PLATELET COUNT (AUTO) 182 K/uL (152-348); RED BLOOD CELL COUNT(AUTO) 3.93 MIL/uL (4.06-5.63)
--- NOTE | 2019-06-26 07:20 | NUR ---
IN BED WITH EYES CLOSED NO SEIZURES OR TREMORS AT THIS TIME REMAIN ON IV FLUIDS ORDERED WITH NO S/S OF INFILTERATION ON SITE CALL LIGHTS AND PERSONAL BELONGINGS ARE PLACED WITHIN EASY REACH NOT IN DISTRESS AT THIS TIME.
[2019-06-26 07:42] LABS: BILIRUBIN,DIRECT 0.2 mg/dL (0.0-0.2); CREATININE 0.7 mg/dL (0.6-1.3); MAGNESIUM 2.3 mg/dL (1.8-2.4); PHOSPHOROUS 2.7 mg/dL (2.5-4.9); POTASSIUM 3.5 mmol/L (3.5-5.1); TOTAL PROTEIN, SERUM 6.3 g/dL (6.4-8.2)
[2019-06-26 08:25] LABS: THYROID STIMULATING HORMONE 2.298 mIU/mL (0.358-3.740)
[2019-06-26] MEDS: MULTIVITAMINS,THERAPEUTIC TABLET PO SCH (08:51)
[2019-06-26] MEDS: CHLORDIAZEPOXIDE HCL 25 MG CAPSULE PO SCH ×3 (08:51→16:44)
[2019-06-26] MEDS: FOLIC ACID 1 MG TABLET PO SCH (08:51)
[2019-06-26] MEDS: THIAMINE HCL 100 MG TABLET PO SCH (09:46)
[2019-06-26 11:06] VITALS: BP 161/77
--- NOTE | 2019-06-26 13:44 | NUR ---
PATIENT SEEN AND EXAMINED BY DR RAMIREZ WITH NEW ORDERS AND NOTED CONTINUE TO MEDICATE HIM WITH ATIVAN FOR ETOH WITHDRAWAL AND EFFECTIVE.
[2019-06-26 15:06] VITALS: BP 163/80
--- NOTE | 2019-06-26 17:21 | NUR ---
ORDER NOTED FOR DISCHARGE PLASMA PROCESSING CENTRIFUGE OPERATOR STATED THAT [facility] WILL CALL SOON A BED IS AVAILABLE PATIENT AWARE.
--- NOTE | 2019-06-26 18:47 | NUR ---
STILL AWAITING FOR CALL FROM [facility] CONTINUE WITH ATIVAN ORDERED AND HELPFUL WILL CONTINUE TO OBSERVE
--- NOTE | 2019-06-26 19:30 | NUR ---
RECEIVED PT AWAKE, ALERT AND ORIENTEDX4. PT SHOWS NO SIGNS OF ACUTE DISTRESS. IV INTACT. SAFETY AND COMFORT PROVIDED. WAITING FOR A CALL FOR PT TO BE TRANSFERRED. WILL CONTINUE TO MONITOR.
[2019-06-26 20:03] VITALS: BP 158/75
[2019-06-26] MEDS: DOCUSATE SODIUM 100 MG CAPSULE PO SCH (20:49)
[2019-06-26] MEDS: ENOXAPARIN SODIUM 40 MG/0.4 ML DISP.SYRIN SQ SCH (20:49)
--- NOTE | 2019-06-26 22:19 | NUR ---
PT REFUSED HIS COLACE. PT IN NO ACUTE DISTRESS. SAFETY PROVIDED. STILL WAITING FOR [facility]. WILL CONTINUE TO MONITOR.
[2019-06-26 22:32] VITALS: BP 145/76
[2019-06-27 01:06] VITALS: BP 138/80
[2019-06-27] MEDS: LORAZEPAM 2 MG/1 ML VIAL IV PRN ×3 (01:07→08:32)
[2019-06-27] MEDS: IV D5 1/2 NS 1000 ML 1,000 ML IV PRN (02:47)
[2019-06-27] MEDS: HYDROCODONE/APAP 5-325MG TABLET PO PRN (02:48)
[2019-06-27 04:52] VITALS: BP 157/90
[2019-06-27] MEDS: PANTOPRAZOLE SODIUM 40 MG TABLET.DR PO SCH (06:06)
[2019-06-27 06:34] LABS: BASOPHILS % (AUTO) 0.5 % (0.0-2.0); EOSINOPHILS # (AUTO) 0.1 K/uL (0.0-0.7); EOSINOPHILS % (AUTO) 2.7 % (0.0-7.0); HEMATOCRIT 38.6 % (36.7-47.1); HEMOGLOBIN 13.2 g/dL (12.5-16.3); LYMPHOCYTES # (AUTO) 1.4 K/uL (20.0-40.0); LYMPHOCYTES % (AUTO) 29.1 % (20.5-51.5); MEAN CORPUSCULAR HEMOGLOBIN 31.7 uug (23.8-33.4); MEAN CORPUSCULAR HGB CONC 34 g/dL (32.5-36.3); MEAN CORPUSCULAR VOLUME 92.9 fL (73.0-96.2); MONOCYTES # (AUTO) 0.2 K/uL (2.0-10.0); MONOCYTES % (AUTO) 3.8 % (0.0-11.0); NEUTROPHILS % (AUTO) 63.9 % (38.5-71.5); PLATELET COUNT (AUTO) 177 K/uL (152-348); RED BLOOD CELL COUNT(AUTO) 4.15 MIL/uL (4.06-5.63); WHITE BLOOD COUNT (AUTO) 4.8 K/uL (3.6-10.2)
--- NOTE | 2019-06-27 06:40 | NUR ---
REMOVED 3 AMBIEN OF THE PT. ONE WAS GIVEN AND ONE RETURN. ONE IS STILL ON THE PYXIS . CHARGE NURSE AWARE OF THE SITUATION.
--- NOTE | 2019-06-27 06:50 | NUR ---
PT IN NO ACUTE DISTRESS. PT SLEPT INTERMITTENTLY. PT GIVEN NORCO TWICE ON MY SHIFT AND FOUR TIMES ATIVAN IN MY SHIFT. PRESCRIBED MEDICATION GIVEN AND PT TOLERATED IT WELL. SAFETY AND COMFORT PROVIDED. WILL ENDORSE TO INCOMING NURSE FOR CONTINUITY OF CARE.
[2019-06-27 07:05] LABS: CREATININE 0.8 mg/dL (0.6-1.3); MAGNESIUM 1.9 mg/dL (1.8-2.4); POTASSIUM 3.4 mmol/L (3.5-5.1)
[2019-06-27] MEDS: FOLIC ACID 1 MG TABLET PO SCH (08:32)
[2019-06-27] MEDS: THIAMINE HCL 100 MG TABLET PO SCH (08:32)
[2019-06-27] MEDS: MULTIVITAMINS,THERAPEUTIC TABLET PO SCH (08:32)
[2019-06-27] MEDS: CHLORDIAZEPOXIDE HCL 25 MG CAPSULE PO SCH (08:32)
--- NOTE | 2019-06-27 09:37 | NUR ---
CALL RECEIVED FROM THE PROOF LOAD MECHANIC STATED THAT THE AMBULANCE WILL BE HERE IN ABOUT 20 MINUTES TO TRANSPORT PATIENT TO [facility].
--- NOTE | 2019-06-27 09:50 | NUR ---
CALLED [facility] AND REPORT GIVEN TO LUIS FOR CONTINUING CARE
--- NOTE | 2019-06-27 10:15 | NUR ---
PATIENT DISCHARGED PICKED UP BY AMBULANCE IN SATISFACTORY CONDITION WITH ALL OF HIS PERSONAL BELONGINGS MID LINE IS IN PLACE AT THIS TIME.
== END 2019-06-27 10:15 | disposition short-term general hospital (02) | DRG 775 ==
LOC: ER 09:50 → TELE3 13:02 → MEDSURG3 06-26 11:23
PROVIDERS: ADMIT Hospitalist; ATTEND Hospitalist
PROC: 05HB33Z Insertion of Infusion Device into Right Basilic Vein, Percutaneous Approach (ICD-10-PCS; principal; 2019-06-25)
DX: F10.239 Alcohol dependence with withdrawal, unspecified (principal); E44.1 Mild protein-calorie malnutrition; I67.2 Cerebral atherosclerosis; E83.42 Hypomagnesemia; Y90.4 Blood alcohol level of 80-99 mg/100 ml; R07.89 Other chest pain; Z86.73 Personal history of transient ischemic attack (TIA), and cerebral infarction without residual deficits; J45.909 Unspecified asthma, uncomplicated; I44.4 Left anterior fascicular block
CPT/HCPCS: 36415; 70030-TC; 70450; 71045; 80307; 83605; 83690; 83735; 84100; 84443; 85025; 85730; 93005; 93307; A4663; G0378; G0480; J1650; J2060; J3411; J3475; J3490; J7030; J7060

== ENCOUNTER 2019-08-04 10:00 | Emergency (ER) | payer OTHER ==
[~2019-08-04] VITALS: Ht 175.3 cm; Wt 93.0 kg
[~2019-08-04 10:00] MED LIST changes: -BACI15OI3 TOP; -FERR325T28 PO; -FOLI1TAB16 PO; +IPRA4AER IH; -LACT10SO7 PO; -LORA-259 PO; -MULT-24 PO; -PANT40TA2 PO; -RIFA550T PO; -THIA100T13 PO; +VITAMIN B COMPLEX
[2019-08-04] MEDS ORDERED: THIAMINE HCL 100 MG TABLET PO ONE (10:15)
[2019-08-04] MEDS ORDERED: CHLORDIAZEPOXIDE HCL 25 MG CAPSULE PO ONE (10:15)
[2019-08-04] MEDS ORDERED: methylPREDNISolone SOD SUCC 125 MG/2 ML VIAL IV ONE (10:15)
[2019-08-04] MEDS ORDERED: IV NORMAL SALINE 500 ML BAG IV ONE ×2 (10:15→10:45)
[2019-08-04] MEDS ORDERED: FOLIC ACID 1 MG TABLET PO ONE (10:15)
[2019-08-04] MEDS ORDERED: LORAZEPAM 2 MG/1 ML VIAL IV ONE ×3 (10:15→14:15)
[2019-08-04] MEDS ORDERED: ALBUTEROL SULFATE 1.25 MG/3 ML NEBU NEB ONE (10:45)
[2019-08-04] MEDS ORDERED: IPRATROPIUM BROMIDE 0.5 MG/2.5 ML NEBU NEB ONE (10:45)
[2019-08-04 10:57] LABS: CARBON DIOXIDE 24 mmol/L (21-32); CHLORIDE 103 mmol/L (98-107); CREATININE 0.7 mg/dL (0.6-1.3); GLUCOSE 133 mg/dL (74-106); POTASSIUM 4.9 mmol/L (3.5-5.1); UREA NITROGEN, BLOOD 14 mg/dL (7-18)
[2019-08-04 10:59] LABS: BASOPHILS # (AUTO) 0.1 K/uL (0.0-8.0); BASOPHILS % (AUTO) 1.3 % (0.0-2.0); EOSINOPHILS # (AUTO) 0.1 K/uL (0.0-0.7); EOSINOPHILS % (AUTO) 1.5 % (0.0-7.0); HEMOGLOBIN 12.7 g/dL (12.5-16.3); LYMPHOCYTES % (AUTO) 31.2 % (20.5-51.5); MEAN CORPUSCULAR HEMOGLOBIN 32.3 uug (23.8-33.4); MEAN CORPUSCULAR HGB CONC 33 g/dL (32.5-36.3); MEAN CORPUSCULAR VOLUME 96.8 fL (73.0-96.2); MONOCYTES # (AUTO) 0.4 K/uL (2.0-10.0); MONOCYTES % (AUTO) 3.8 % (0.0-11.0); NEUTROPHILS % (AUTO) 62.2 % (38.5-71.5); PLATELET COUNT (AUTO) 338 K/uL (152-348); RED BLOOD CELL COUNT(AUTO) 3.92 MIL/uL (4.06-5.63); WHITE BLOOD COUNT (AUTO) 9.6 K/uL (3.6-10.2)
[2019-08-04 11:12] LABS: ACETAMINOPHEN < 2.0 ug/mL (10-30); ALANINE AMINOTRANSFERASE 53 U/L (16-63); ALKALINE PHOSPHATASE 73 U/L (50-136); ASPARTATE AMINOTRANSFERASE 58 U/L (15-37); BILIRUBIN,DIRECT 0.1 mg/dL (0.0-0.2); BILIRUBIN,TOTAL 0.3 mg/dL (0.2-1.0); TOTAL PROTEIN, SERUM 7.3 g/dL (6.4-8.2)
[2019-08-04 11:13] LABS: ETHANOL 242 MG/DL (0-0)
--- NOTE | 2019-08-04 11:28 | NUR ---
Pt's o2 sat drops to 88% w/o nasal cannula, but pt refused having O2, stating my nose is broken and it bothers me.
[2019-08-04] MEDS ORDERED: CEFTRIAXONE /D5W 50ML IVPB **ER PYXIS IV ONE (11:29)
[2019-08-04] MEDS ORDERED: AZITHROMYCIN IV 500 MG in IV DEXTROSE 5% 250 ML IV ONE (11:30)
[2019-08-04] MEDS ORDERED: AZITHROMYCIN 500MG/ D5W 250ML IVPB **ER PYXIS ONLY IV ONE (11:30)
[2019-08-04] MEDS ORDERED: CEFTRIAXONE 1 G in IV DEXTROSE 5% 50 ML IV ONE (11:30)
--- NOTE | 2019-08-04 11:49 | NUR ---
Patient is resting comfortably in bed with eyes closed, NAD noted.
--- NOTE | 2019-08-04 12:33 | NUR ---
Urine collected and sent to LAB.
--- NOTE | 2019-08-04 12:38 | NUR ---
Spoke to mutuel department manager from [facility], accepting MD is DR Ramsay. No bed info yet, will notify.
[2019-08-04 13:01] LABS: *BILIRUBIN,URIN NEGATIVE (NEGATIVE); *BLOOD, URINE NEGATIVE (NEGATIVE); *CLARITY,URINE CLEAR (CLEAR); *COLOR,URINE YELLOW (YELLOW); *KETONES,URINE NEGATIVE (NEGATIVE); *UROBILINOGEN,URINE 0.2 E.U./dl (NORMAL); LEUKOCYTE ESTERASE ,URINE NEGATIVE (NEGATIVE); NITRITE, URINE NEGATIVE (NEGATIVE); PH,URINE 5.5 (5.0-8.0); UGLUCOSE NEGATIVE (NEGATIVE)
[2019-08-04] MEDS ORDERED: LORAZEPAM 2 MG/1 ML VIAL ONE ×2 (13:22→14:20)
--- NOTE | 2019-08-04 14:02 | NUR ---
Recieved a call from rich White for [facility]. Pt will be transfered [facility] w/ ACLS transfer, slate picker [phone].
--- NOTE | 2019-08-04 14:12 | NUR ---
Attempted to give report to RN at [facility], transfered back to intake, since this is a male Pt and room given was for female pt. Intake notified me they will call me w/ another bed info demetris.
--- NOTE | 2019-08-04 15:13 | NUR ---
Patient is resting comfortably in bed with eyes closed, NAD noted.
--- NOTE | 2019-08-04 15:45 | NUR ---
Report given to Karen KAN at [facility]. Pt is aware of transfer and signed consent. ETA for ambulance pickup is 1615.
--- NOTE | 2019-08-04 16:20 | NUR ---
[place] report given to transfering industrial hygiene manager. Pt left ER in stable condition, all belongings sent w/ pt.
[2019-08-04 16:31] LABS: *AMPHETAMINE, URINE NEGATIVE (NEGATIVE); *BARBITURATE, URINE NEGATIVE (NEGATIVE); *CANNABINOID, URINE NEGATIVE (NEGATIVE); *COCCAINE, URINE NEGATIVE (NEGATIVE); *OPIATE, URINE NEGATIVE (NEGATIVE); *PHENCYCLIDINE SCREEN,URINE NEGATIVE (NEGATIVE)
== END 2019-08-04 16:26 | disposition short-term general hospital (02) ==
LOC: ER 10:00
DX: F10.239 Alcohol dependence with withdrawal, unspecified (principal); J45.901 Unspecified asthma with (acute) exacerbation; R53.1 Weakness; I67.2 Cerebral atherosclerosis; Z86.73 Personal history of transient ischemic attack (TIA), and cerebral infarction without residual deficits; F17.200 Nicotine dependence, unspecified, uncomplicated; Z91.010 Allergy to peanuts; Z79.899 Other long term (current) drug therapy; Y90.8 Blood alcohol level of 240 mg/100 ml or more
CPT/HCPCS: 36415; 70450; 71045; 80048; 80076; 80307; 81001; 82140; 83605 ×2; 83930; 84145; 85025; 85730; 87040; 87086; 93005; 94640; 96365; 96367; 96375; 96376; 99285; G0480 ×2; G0481; J0456; J0696; J2060 ×3; J2930; A4663; J3590; J7030